=== PATIENT | male | born 1930 | race Asian ===

== ENCOUNTER 2017-11-07 18:01 | Emergency (ER) | payer OTHER ==
[~2017-11-07] VITALS: Ht 162.6 cm; Wt 56.8 kg
[2017-11-07 18:17] LABS: GLUCOSE,POINT OF CARE 118 MG/DL (70-110)
[2017-11-07 18:38] LABS: BASOPHILS % (AUTO) 0.7 % (0.0-2.0); EOSINOPHILS % (AUTO) 0.7 % (1.0-6.0); HEMATOCRIT 34.1 % (41-53); HEMOGLOBIN 11.4 g/dL (13.5-17.5); LYMPHOCYTES # (AUTO) 2.5 K/uL (1.0-4.8); LYMPHOCYTES % (AUTO) 22.9 % (22.0-44.0); MEAN CORPUSCULAR HEMOGLOBIN 31.4 pg (26.0-34.0); MEAN CORPUSCULAR HGB CONC 33.5 G/dL (31.0-37.0); MEAN CORPUSCULAR VOLUME 94 fL (80-100); MONOCYTES # (AUTO) 0.7 K/uL (0.1-1.0); MONOCYTES % (AUTO) 6.3 % (2.0-9.0); NEUTROPHILS # (AUTO) 7.5 K/uL (1.8-7.7); NEUTROPHILS % (AUTO) 69.4 % (40.0-70.0); PLATELET COUNT (AUTO) 246 K/uL (150-450); RED BLOOD CELL COUNT(AUTO) 3.64 MIL/uL (4.50-5.90); RED CELL DISTRIBUTION WIDTH 14.2 % (11.5-14.5)
[2017-11-07 18:46] LABS: CALCIUM, TOTAL 9.3 mg/dL (8.8-10.5); CREATININE 1.2 mg/dL (0.60-1.30); POTASSIUM 3.5 mmol/L (3.5-5.1)
[2017-11-07] MEDS ORDERED: VALS160T2 PO (18:47)
[2017-11-07] MEDS ORDERED: ASPI-556 PO (18:47)
[2017-11-07] MEDS ORDERED: GLIM2 PO (18:48)
[2017-11-07 18:52] LABS: ALBUMIN 3.4 g/dL (3.4-5.0); BILIRUBIN,TOTAL 0.5 mg/dL (0.1-1.0); TOTAL PROTEIN, SERUM 7.4 g/dL (6.4-8.2)
[2017-11-07] MEDS ORDERED: ATOR10TA84 PO (19:31)
[2017-11-07] MEDS ORDERED: METF500T4 PO (19:32)
[2017-11-07] MEDS ORDERED: [UNRECOGNIZED DRUG - CODE] IM (19:32)
[2017-11-07] MEDS ORDERED: GABA-529 PO (19:33)
[2017-11-07] MEDS ORDERED: AMLO-511 PO (19:33)
[2017-11-07] MEDS ORDERED: TIOT185 IH (19:34)
[2017-11-07] MEDS ORDERED: MIRT15 PO (19:34)
[2017-11-07] MEDS ORDERED: LINA5TAB PO (19:35)
[2017-11-07] MEDS ORDERED: VIT1TABL95 PO (19:36)
[2017-11-07] MEDS ORDERED: LEVO5TAB29 PO (19:37)
[2017-11-07 21:20] VITALS: BP 137/63
== END 2017-11-07 21:25 | disposition home or self-care (01) ==
LOC: EMS 18:03
DX: S01.81XA Laceration without foreign body of other part of head, initial encounter (principal); E11.9 Type 2 diabetes mellitus without complications; I10 Essential (primary) hypertension; F17.210 Nicotine dependence, cigarettes, uncomplicated; W18.39XA Other fall on same level, initial encounter; Y93.89 Activity, other specified; Y92.89 Other specified places as the place of occurrence of the external cause; Y99.8 Other external cause status
CPT/HCPCS: 70450; 70486; 82962; 93005; 99285